=== PATIENT | female | born 1990 | race American Indian/Alaskan Native ===

== ENCOUNTER 2017-09-15 23:19 | Emergency (ER) | payer SELFPAY ==
[2017-09-16 01:45] LABS: Basophils % (Auto) 0.2 % (0.0-1.8); Eosinophils # (Auto) 0.1 K/mm3 (0.0-0.4); Eosinophils % (Auto) 1.3 % (0.0-4.3); Hematocrit 40.3 % (30.3-42.9); Hemoglobin 13.5 gm/dl (10.1-14.3); Lymphocytes # (Auto) 1.9 K/mm3 (1.2-5.4); Lymphocytes % (Auto) 24.4 % (13.4-35.0); Mean Corpuscular HGB Conc 34 % (30-34); Mean Corpuscular Hemoglobin 30 pg (28-32); Mean Corpuscular Volume 90 fl (79-97); Monocytes # (Auto) 0.6 K/mm3 (0.0-0.8); Monocytes % (Auto) 7.1 % (0.0-7.3); Platelet Count 183 K/mm3 (140-440); Red Blood Count 4.47 M/mm3 (3.65-5.03); Red Cell Distribution Width 13.9 % (13.2-15.2)
[2017-09-16 02:00] LABS: Alanine Aminotransferase 7 units/L (7-56); Albumin 4.4 g/dL (3.9-5); BUN/Creatinine Ratio 10; Blood Urea Nitrogen 6 mg/dL (7-17); Calcium 9.1 mg/dL (8.4-10.2); Hemolysis Index 5
[2017-09-16 02:04] LABS: Bilirubin,Urine NEG (Negative); Blood,Urine NEG (Negative); Color,Urine Yellow (Yellow); Mucus,Urine 3+ /HPF; Nitrite,Urine NEG (Negative)
[2017-09-16] MEDS ORDERED: ZOFRAN ODT PO ONE (11:19)
[2017-09-16] MEDS ORDERED: TYLENOL PO ONE (11:19)
--- NOTE | 2017-09-16 11:32 | Emergency Department Report ---
HPI - General Chief Complaint: Abdominal Pain Time Seen by Provider: 09/16/17 10:52 - HPI HPI: 27-year-old female presents to ED complaining of lower pelvic cramping and nausea for the past one week. she states lmp as 08/04/17. She denies fevers/ chills/vomiting/chest pains or shortness of breath or any other problems ED Past Medical Hx - Past Medical History Previous Medical History?: No - Surgical History Past Surgical History?: No - Social History Smoking Status: Never Smoker Substance Use Type: None - Medications Home Medications: Home Medications Medication Instructions Recorded Confirmed Last Taken Type traMADol [Ultram 50 MG tab] 50 mg PO Q6HR PRN #15 tablet 02/04/16 Unknown Rx Cephalexin [Keflex] 500 mg PO QID #20 cap 06/11/16 Unknown Rx Diphenhydramine HCl [Benadryl 25 mg PO Q6H PRN #20 tablet 06/11/16 Unknown Rx Allergy TAB] Ibuprofen [Motrin 600 MG tab] 600 mg PO Q8H PRN #30 tablet 06/11/16 Unknown Rx Acetaminophen [Tylenol Extra 500 mg PO Q6H #30 tablet 09/16/17 Unknown Rx Strength] Doxylamine Succinate/Vit B6 2 each PO QHS #30 tablet. 09/16/17 Unknown Rx [Mika Davidson 10-10 mg Tablet] 21/Iron Fu/Folic Acid 1 each PO DAILY #40 tablet 09/16/17 Unknown Rx [ Complete Caplet] ED Review of Systems ROS: Stated complaint: ABD/BACK PAIN Other details as noted in HPI Constitutional: denies: chills, fever Eyes: denies: eye pain, eye discharge, vision change ENT: denies: ear pain, throat pain, congestion Respiratory: denies: cough, shortness of breath, wheezing Cardiovascular: denies: chest pain, palpitations Endocrine: no symptoms reported Gastrointestinal: nausea. denies: abdominal pain, vomiting, diarrhea, constipation Genitourinary: denies: urgency, dysuria, discharge Musculoskeletal: denies: back pain, joint swelling, arthralgia Skin: denies: rash, lesions, pruritus Neurological: denies: headache, weakness, paresthesias Psychiatric: denies: anxiety, depression Hematological/Lymphatic: denies: easy bleeding, easy bruising Physical Exam - Physical Exam Vital Signs: Vital Signs 09/16/17 00:24 Temperature 98.4 F Pulse Rate 68 Respiratory 18 Rate Blood Pressure 134/98 O2 Sat by Pulse 100 Oximetry Physical Exam: GENERAL: Alert and oriented x3, no apparent distress, Normal Gait, atraumatic. HEAD: Head is normocephalic and a-traumatic. EYES: Extra ocular muscles are intact. Pupils are equal, round, and reactive to light and accommodation. LUNGS: Symetrical with respiration, No wheezing, no rales or crackles, CTAB. HEART: S1, S2 present, regular rate and rhythm without murmur, no rubs, no gallops. Non tender to palpation ABDOMEN: No organomegaly was noted,Positive bowel sounds, soft, and non- distended. . Nontender to palpation on all Quadrants, NO CVA tenderness. EXTREMITIES/MUSCULOSKELETAL: No cyanosis, clubbing, rash, lesions or edema. Full ROM bilaterally. UE/LE Pulses 2+ bilaterally. LE and UE 5+ strength bilaterally, straight leg raise negative bilaterally NEUROLOGIC: The patient is cooperative with no focal neurologic deficits. SKIN: Warm and dry, No lesions, No ulceration or induration present. ED Course Vital Signs 09/16/17 00:24 Temperature 98.4 F Pulse Rate 68 Respiratory 18 Rate Blood Pressure 134/98 O2 Sat by Pulse 100 Oximetry ED Medical Decision Making - Lab Data Result diagrams: 09/16/17 00:50 09/16/17 00:50 - Medical Decision Making 27-year-old female presents with signs and symptoms of ED course: Patient received Tylenol, Zofran ED. CBC, CMP, urinalysis and tests ordered. preg test positive, all other labs within normal limits. Quant ordered. Quantitative pending I discussed his findings with the patient. I discussed the patient to follow up with [facility] as referrals are given. Vital signs are normal. Patient is in no acute distress. I discussed the patient to take medication as needed for nausea as well as increase her fluid intake Patient states she understands instructions and will follow. I discussed with the patient is any worsening symptoms or new symptoms arise to return to ED. Critical care attestation.: If time is entered above; I have spent that time in minutes in the direct care of this critically ill patient, excluding procedure time. ED Disposition Clinical Impression: test positive, Nausea Qualifiers: Weeks of gestation: less than 8 weeks Qualified Code(s): Z3A.01 - Less than 8 weeks gestation of Disposition: DC- TO HOME OR SELFCARE Is pt being admited?: No Does the pt Need Aspirin: No Condition: Stable Instructions: Abdominal Pain (ED), Morning Sickness (ED), (ED) Additional Instructions: Make sure to follow up with the obgyn as discussed. Take all your medications as you've been prescribed. If you have any worsening symptoms or develop new symptoms please return to ED immediately. Increase and drink plenty of fluids. Prescriptions: Doxylamine Succinate/Vit B6 [Mika Davidson 10-10 mg Tablet] 2 each PO QHS #30 tablet. Acetaminophen [Tylenol Extra Strength] 500 mg PO Q6H #30 tablet 21/Iron Fu/Folic Acid [ Complete Caplet] 1 each PO DAILY #40 tablet Referrals: ELVIA GOMEZ MD [Primary Care Provider] - 3-5 Days MADIHA CRONIN MD [Referring] - 3-5 Days SABINE CRONIN MD [Referring] - 3-5 Days ASHANTI RENE MD [Referring] - 3-5 Days LAINA HERRERA MD [Staff Physician] - 3-5 Days ZENOBIA HERRERA MD [Referring] - 3-5 Days Forms: Work/School Release Form(ED) Time of Disposition: 12:31
[2017-09-16 12:48] VITALS: BP 144/87
== END 2017-09-16 12:47 | disposition home or self-care (01) ==
LOC: ED 23:19
DX: Z32.01 Encounter for pregnancy test, result positive (principal); Z3A.01 Less than 8 weeks gestation of pregnancy; R11.0 Nausea; R10.2 Pelvic and perineal pain
CPT/HCPCS: 36415; 80053; 81001; 84702; 84703; 85025; 99283; Q0162

== ENCOUNTER 2018-05-20 14:55 | Inpatient (IN) | payer MEDICAID ==
[2018-05-20 15:56] LABS: Bacteria,Urine 1+ /HPF (Negative); Bilirubin,Urine NEG (Negative); Blood,Urine LG (Negative); Color,Urine Yellow (Yellow); Mucus,Urine FEW /HPF; Protein,Urine <15 mg/dL mg/dL (Negative); Urobilinogen,Urine < 2.0 mg/dL (<2.0)
[2018-05-20] MEDS ORDERED: APRESOLINE IV ONE ×2 (16:11→17:17)
--- NOTE | 2018-05-20 16:14 | Emergency Department Report ---
HPI - General Chief Complaint: High BP Time Seen by Provider: 05/20/18 16:03 - HPI HPI: 28-year-old female presents to the emergency department with complaint of elevated blood pressure and a frontal headache and the patient is about 3 weeks from a vaginal delivery. 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 Prior to this she has no history of any hypertension or any other pre-existing medical conditions. She denies any vision change, slurred speech, chest pain or shortness of breath. She went to a pharmacy and the blood pressure was almost systolic 200. She does not smoke tobacco but occasionally will smoke marijuana. ED Past Medical Hx - Past Medical History Previous Medical History?: No Hx Hypertension: No Hx Congestive Heart Failure: No Hx Diabetes: No Hx Deep Vein Thrombosis: No Hx Renal Disease: No Hx Sickle Cell Disease: No Hx Seizures: No Hx Asthma: No Hx COPD: No Hx HIV: No - Surgical History Past Surgical History?: No - Social History Smoking Status: Never Smoker Substance Use Type: Alcohol, Marijuana - Medications Home Medications: Home Medications Medication Instructions Recorded Confirmed Last Taken Type traMADol [Ultram 50 MG tab] 50 mg PO Q6HR PRN #15 tablet 02/04/16 05/20/18 Unknown Rx Diphenhydramine HCl [Benadryl 25 mg PO Q6H PRN #20 tablet 06/11/16 05/20/18 Unknown Rx Allergy TAB] Ibuprofen [Motrin 600 MG tab] 600 mg PO Q8H PRN #30 tablet 06/11/16 05/20/1804/09 06:00 Rx cephALEXin [Keflex] 500 mg PO QID #20 cap 06/11/16 05/20/18 Unknown Rx Acetaminophen [Tylenol Extra 500 mg PO Q6H #30 tablet 09/16/17 05/20/18 Unknown Rx Strength] Doxylamine Succinate/Vit B6 2 each PO QHS #30 tablet. 09/16/17 05/20/18 Unknown Rx [Mika Davidson 10-10 mg Tablet] 21/Iron Fu/Folic Acid 1 each PO DAILY #40 tablet 09/16/17 05/20/18 Unknown Rx [ Complete Caplet] Lidocain2.5%/Prilocai2.5% [Emla] 5 gm TP PRN #1 tube 04/30/18 05/20/18 Unknown Rx Docusate Sodium [Colace] 100 mg PO BID PRN #60 capsule 05/01/18 05/20/18 Unknown Rx Ferrous Sulfate [Feosol 325 MG tab] 325 mg PO BID #60 tablet 05/01/18 05/20/18 Unknown Rx Ibuprofen [Motrin 800 MG tab] 800 mg PO TID PRN #30 tablet 05/01/18 05/20/18 Unknown Rx ED Review of Systems ROS: Stated complaint: HIGH BP Other details as noted in HPI Comment: All other systems reviewed and negative Constitutional: denies: chills, fever Eyes: denies: eye pain, eye discharge, vision change ENT: denies: ear pain, throat pain Respiratory: denies: cough, shortness of breath, wheezing Cardiovascular: denies: chest pain, palpitations Gastrointestinal: denies: abdominal pain, nausea, diarrhea Genitourinary: denies: urgency, dysuria, discharge Musculoskeletal: back pain. denies: joint swelling Skin: denies: rash, lesions Neurological: headache. denies: numbness Physical Exam - Physical Exam Vital Signs: Vital Signs 05/20/18 05/20/18 05/20/18 15:17 15:52 15:58 Temperature 98.8 F 98.5 F Pulse Rate 64 67 Respiratory 16 17 17 Rate Blood Pressure 187/110 Blood Pressure 180/105 [Left] O2 Sat by Pulse 100 100 100 Oximetry Physical Exam: GENERAL: The patient is well-developed well-nourished. HENT: Normocephalic. Atraumatic. Patient has moist mucous membranes. EYES: Extraocular motions are intact. Pupils equal reactive to light bilaterally. No nystagmus. NECK: Supple. Trachea is midline. CHEST/LUNGS: Clear to auscultation. There is no respiratory distress noted. HEART/CARDIOVASCULAR: Regular. There is no tachycardia. There is no murmur. ABDOMEN: Abdomen is soft, nontender. Patient has normal bowel sounds. There is no abdominal distention. SKIN: Skin is warm and dry. NEURO: The patient is awake, alert, and oriented. The patient is cooperative. The patient has no focal neurologic deficits. The patient has normal speech. Cranial nerves II through XII grossly intact. MUSCULOSKELETAL: There is no tenderness or deformity. There is no limitation range of motion. There is no evidence of acute injury. ED Course Vital Signs 05/20/18 05/20/18 05/20/18 15:17 15:52 15:58 Temperature 98.8 F 98.5 F Pulse Rate 64 67 Respiratory 16 17 17 Rate Blood Pressure 187/110 Blood Pressure 180/105 [Left] O2 Sat by Pulse 100 100 100 Oximetry ED Medical Decision Making - Lab Data Result diagrams: 05/20/18 16:21 05/20/18 16:21 - Radiology Data Radiology results: report reviewed CT of the head does not show any acute intracranial process including no ischemia, shift, mass, bleeding or skull fracture. - Medical Decision Making This patient came in with a complaint of a headache and elevated blood pressure. She is 3 weeks status post vaginal delivery done by Dr. Rey. On examination she does not have any focal, motor or sensory deficits in her cranial nerves are intact. CT of the head did not show any bleed, shift, mass, ischemia or any other acute process. The patient was given 2 different doses of hydralazine and a Percocet for her headache. It did show improvement in her blood pressure but it still remains elevated. I spoke to the [facility] service who is admitting her for hypertension, magnesium and further evaluation. - Differential Diagnosis preeclampsia, hypertension, essential hypertension, tension head Critical Care Time: No Critical care attestation.: If time is entered above; I have spent that time in minutes in the direct care of this critically ill patient, excluding procedure time. ED Disposition Clinical Impression: hypertension Headache Qualifiers: Headache type: unspecified Headache chronicity pattern: unspecified pattern Intractability: not intractable Qualified Code(s): R51 - Headache Disposition: OP ADMIT IP TO THIS HOSP Is pt being admited?: Yes Condition: Fair Time of Disposition: 23:23
[2018-05-20 16:33] LABS: Basophils % (Auto) 0.4 % (0.0-1.8); Eosinophils # (Auto) 0.2 K/mm3 (0.0-0.4); Eosinophils % (Auto) 4.2 % (0.0-4.3); Hematocrit 32.1 % (30.3-42.9); Hemoglobin 10.7 gm/dl (10.1-14.3); Lymphocytes # (Auto) 1.6 K/mm3 (1.2-5.4); Lymphocytes % (Auto) 36.6 % (13.4-35.0); Mean Corpuscular HGB Conc 33 % (30-34); Mean Corpuscular Hemoglobin 28 pg (28-32); Mean Corpuscular Volume 82 fl (79-97); Monocytes # (Auto) 0.4 K/mm3 (0.0-0.8); Monocytes % (Auto) 8.5 % (0.0-7.3); Platelet Count 189 K/mm3 (140-440); Red Blood Count 3.89 M/mm3 (3.65-5.03)
[2018-05-20 16:49] LABS: Alanine Aminotransferase 15 units/L (7-56); Albumin 3.8 g/dL (3.9-5); BUN/Creatinine Ratio 15; Blood Urea Nitrogen 9 mg/dL (7-17); Calcium 8.5 mg/dL (8.4-10.2); Hemolysis Index 11
[2018-05-20] MEDS ORDERED: PERCOCET 5/325 PO ONE (17:17)
--- NOTE | 2018-05-20 17:34 | Cat Scan Report ---
FINAL REPORT EXAM: CT HEAD/BRAIN WO CON HISTORY: headache, hypertension TECHNIQUE: CT examination of the head without IV contrast PRIORS: None. FINDINGS: Slight mucosal thickening maxillary sinuses. Moderate mucosal thickening ethmoid sinuses. Slight left and moderate right sphenoid sinus mucosal thickening. Clear frontal sinuses. Clear mastoid air cells and middle ear cavities. No acute air-fluid level visualized in the included air-filled sinuses. Bone windows demonstrate no acute fracture. The brain is without mass, mass effect, hemorrhage, or acute infarct. There is no extra-axial intracranial bleed, brain bleed, or midline shift. The ventricles and sulci are age-appropriate. IMPRESSION: No acute CVA, intracranial bleed, or brain mass Multifocal paranasal sinus disease without visible acute fluid level.
[2018-05-20] MEDS ORDERED: MAGNESIUM SULFATE 4GM/100ML 4 GM/100 ML BAG IV ONE (18:28)
[2018-05-20] MEDS ORDERED: ZOFRAN IV ONE (18:30)
[2018-05-20] MEDS ORDERED: ZOFRAN ONE (18:30)
[2018-05-20] MEDS ORDERED: MAGNESIUM SULFATE 40GM/1000ML 40 GM/1,000 ML BAG IV SCH ×2 (19:00→22:00)
--- NOTE | 2018-05-20 20:53 | History and Physical Report ---
History of Present Illness Date of examination: 05/20/18 Date of admission: 05/20/18 18:28 Chief complaint: high blood pressure History of present illness: From ED note: - General Chief Complaint: High BP - HPI HPI: 28-year-old female presents to the emergency department with complaint of elevated blood pressure and a frontal headache and the patient is about 3 weeks from a vaginal delivery. Her WIPER BLENDER is through [facility] and she called them to let them know of the elevated blood pressure and her headache and she was told by the emergency department. Prior to this she has no history of any hypertension or any other pre-existing medical conditions. She denies any vision change, slurred speech, chest pain or shortness of breath. She went to a pharmacy and the blood pressure was almost systolic 200. She does not smoke tobacco but occasionally will smoke marijuana. ED Past Medical Hx - Past Medical History Previous Medical History?: No Hx Hypertension: No Hx Congestive Heart Failure: No Hx Diabetes: No Hx Deep Vein Thrombosis: No Hx Renal Disease: No Hx Sickle Cell Disease: No Hx Seizures: No Hx Asthma: No Hx COPD: No Hx HIV: No - Surgical History Past Surgical History?: No - Social History Smoking Status: Never Smoker Substance Use Type: Alcohol, Marijuana Past History Past Medical History: no pertinent history Past Surgical History: no surgical history Medications and Allergies Allergies Allergy/AdvReac Type Severity Reaction Status Date / Time No Known Allergies Allergy Verified 05/20/18 15:20 Home Medications Medication Instructions Recorded Confirmed Last Taken Type traMADol [Ultram 50 MG tab] 50 mg PO Q6HR PRN #15 tablet 02/04/16 05/20/18 Unknown Rx Diphenhydramine HCl [Benadryl 25 mg PO Q6H PRN #20 tablet 06/11/16 05/20/18 Unknown Rx Allergy TAB] Ibuprofen [Motrin 600 MG tab] 600 mg PO Q8H PRN #30 tablet 06/11/16 05/20/1804/09 06:00 Rx cephALEXin [Keflex] 500 mg PO QID #20 cap 06/11/16 05/20/18 Unknown Rx Acetaminophen [Tylenol Extra 500 mg PO Q6H #30 tablet 09/16/17 05/20/18 Unknown Rx Strength] Doxylamine Succinate/Vit B6 2 each PO QHS #30 tablet. 09/16/17 05/20/18 Unknown Rx [Mika Davidson 10-10 mg Tablet] 21/Iron Fu/Folic Acid 1 each PO DAILY #40 tablet 09/16/17 05/20/18 Unknown Rx [ Complete Caplet] Lidocain2.5%/Prilocai2.5% [Emla] 5 gm TP PRN #1 tube 04/30/18 05/20/18 Unknown Rx Docusate Sodium [Colace] 100 mg PO BID PRN #60 capsule 05/01/18 05/20/18 Unknown Rx Ferrous Sulfate [Feosol 325 MG tab] 325 mg PO BID #60 tablet 05/01/18 05/20/18 Unknown Rx Ibuprofen [Motrin 800 MG tab] 800 mg PO TID PRN #30 tablet 05/01/18 05/20/18 Unknown Rx Active Meds: Active Medications Lactated Ringer's (Lactated Ringers) 1,000 mls @ 125 mls/hr IV DIRECT CEM Labetalol HCl (Normodyne) 300 mg PO BID CEM Review of Systems All systems: negative Neurological: headaches - Vital Signs Vital signs: Vital Signs Temp Pulse Resp BP Pulse Ox 98.8 F 64 16 187/110 100 05/20/18 15:17 05/20/18 15:17 05/20/18 15:17 05/20/18 15:17 05/20/18 15:17 Temp Pulse Resp BP Pulse Ox 98.5 F 86 18 152/108 100 05/20/18 15:52 05/20/18 18:00 05/20/18 18:00 05/20/18 18:00 05/20/18 18:00 - Physical Exam Cardiovascular: Regular rate Lungs: Positive: Clear to auscultation Abdomen: Positive: normal appearance, soft Extremities: Positive: normal Results Result Diagrams: 05/20/18 16:21 05/20/18 16:21 Abnormal lab results 05/20/18 05/20/18 Range/Units 16:21 16:21 WBC 4.4 L (4.5-11.0) K/mm3 Lymph % (Auto) 36.6 H (13.4-35.0) % [place] % (Auto) 8.5 H (0.0-7.3) % Chloride 107.8 H (98-107) mmol/L Creatinine 0.6 L (0.7-1.2) mg/dL Albumin 3.8 L (3.9-5) g/dL All other labs normal. Assessment and Plan 28 y/o had a vaginal 04/30/18 readmitted for elevated blood pressures. 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 She reported a MYERS since delivery. She was advised to go to the ED where her blood pressure continued to be elevated even after being treated with 2 doses hydralizine IV. Of note; Patient had elevated b/p's at time of her last admission 04/29/18 with normal pre-e labs and 2 slightly elevated b/p's noted at ED visit in August 2017. Admission orders in EMR for hypertension to [facility]. Dr. Randall has been consulted on admission. - Patient Problems (1) hypertension Current Visit: Yes Status: Acute
[2018-05-20] MEDS ORDERED: NORMODYNE PO SCH (22:00)
[2018-05-20] MEDS: NORMODYNE PO SCH (22:00)
[2018-05-20] MEDS: LACTATED RINGERS 1,000 ML IV SCH (22:18)
--- NOTE | 2018-05-20 22:26 | Event Note ---
Date: 05/20/18 Pt seen and evaluated. States she was having a headache and had bp checked and [facility] and it was 190s/117s. No blurry vision at this time. I d/w plan of care. She is s/p labetalol 300mg po. Will closely monitor at this time and con' t the magnesium. Pt states with this was the only time her bp was elevated. All questions were addressed and answered and pt agrees with plan of care. RN at bedside at time that plan of care was d/w pt.
[2018-05-21] MEDS ORDERED: TYLENOL PO PRN (01:14)
[2018-05-21] MEDS: MOTRIN PO PRN ×2 (01:41→10:13)
[2018-05-21] MEDS: LACTATED RINGERS 1,000 ML IV SCH ×2 (06:35→21:44)
[2018-05-21] MEDS: NORMODYNE PO SCH ×2 (10:08→21:55)
--- NOTE | 2018-05-21 10:53 | Progress Note ---
Assessment and Plan - Patient Problems (1) Headache Current Visit: Yes Status: Acute Qualifiers: Headache type: unspecified Headache chronicity pattern: unspecified pattern Intractability: not intractable Qualified Code(s): R51 - Headache (2) hypertension Current Visit: Yes Status: Acute Plan to address problem: D/c MgSO at 7p, continue Labetalol 300mg Adjust pain meds Possible d/c home tomorrow Patient agrees with plan of care Subjective Date of service: 05/21/18 Principal diagnosis: PPD#21 , with PP preeclampisa, MYERS Interval history: Complains of MYERS Objective - Constitutional Vitals: Vital Signs - 12hr 05/21/18 05/21/18 05/21/18 00:00 01:41 02:30 Temperature 98.4 F 98.0 F Pulse Rate 71 63 Respiratory 20 20 20 Rate Blood Pressure 124/74 126/63 [Left] 05/21/18 05/21/18 04:25 10:13 Temperature 98.4 F Pulse Rate 87 Respiratory 20 20 Rate Blood Pressure 120/67 [Left] General appearance: Present: no acute distress - Neck Neck: supple - Respiratory Respiratory effort: normal Respiratory: negative: CTA - Breasts Breasts: normal - Cardiovascular Rhythm: regular Extremities: no ischemia, No edema - Gastrointestinal General gastrointestinal: Present: soft, non-tender, non-distended, normal bowel sounds - Psychiatric Psychiatric: appropriate mood/affect, intact judgment & insight - Labs CBC & Chem 7: 05/20/18 16:21 05/20/18 16:21 Labs: Abnormal lab results 05/20/18 05/20/18 05/21/18 Range/Units 16:21 16:21 00:57 WBC 4.4 L (4.5-11.0) K/mm3 Lymph % (Auto) 36.6 H (13.4-35.0) % [place] % (Auto) 8.5 H (0.0-7.3) % Chloride 107.8 H (98-107) mmol/L Creatinine 0.6 L (0.7-1.2) mg/dL Magnesium 3.80 H (1.7-2.3) mg/dL Albumin 3.8 L (3.9-5) g/dL 05/21/18 Range/Units 05:58 WBC (4.5-11.0) K/mm3 Lymph % (Auto) (13.4-35.0) % [place] % (Auto) (0.0-7.3) % Chloride (98-107) mmol/L Creatinine (0.7-1.2) mg/dL Magnesium 3.80 H (1.7-2.3) mg/dL Albumin (3.9-5) g/dL
[2018-05-21] MEDS: TYLENOL PO SCH ×2 (12:37→19:01)
[2018-05-21] MEDS: MOTRIN PO SCH ×2 (15:42→21:56)
[2018-05-22] MEDS: TYLENOL PO SCH ×2 (00:33→06:15)
[2018-05-22] MEDS: MOTRIN PO SCH ×2 (04:16→09:28)
[2018-05-22] MEDS: NORMODYNE PO SCH ×2 (09:22→20:04)
[2018-05-22] MEDS: CLARITIN-D 24HR PO SCH (11:23)
--- NOTE | 2018-05-22 11:42 | Progress Note ---
Assessment and Plan Patient desires d/c home. Will observe thruout today and ? d/c this pm if MYERS improves with claritin and BP's remain stable, she has an appointment scheduled for tomorrow the office - Patient Problems (1) Headache Current Visit: Yes Status: Acute Qualifiers: Headache type: unspecified Headache chronicity pattern: chronic headache Intractability: intractable Qualified Code(s): R51 - Headache (2) Paranasal sinus disease Current Visit: Yes Status: Chronic Plan to address problem: Will try Claritin D and will watch BP's closely (3) hypertension Current Visit: Yes Status: Acute Plan to address problem: Continue labetalol Subjective Date of service: 05/22/18 Principal diagnosis: PPD#22 , with PP preeclampisa, MYERS Interval history: States her MYERS is better now but comes back after the medicine wears off. States she has had MYERS's like this prior to her pregnancies. She cannot remember what medication she would take to relieve the MYERS's because it was so long ago. Objective - Exam Narrative Exam: Patient was sleeping, awakened easily. MYERS better now - Constitutional Vitals: Vital Signs - 12hr 05/22/18 05/22/18 05/22/18 00:15 04:15 07:41 Temperature 98.3 F 97.9 F 97.6 F Pulse Rate 76 61 68 Respiratory 18 18 18 Rate Blood Pressure 147/99 165/98 148/76 [Left] O2 Sat by Pulse 96 99 Oximetry 05/22/18 09:28 Temperature Pulse Rate Respiratory 20 Rate Blood Pressure [Left] O2 Sat by Pulse Oximetry General appearance: Present: no acute distress - Respiratory Respiratory effort: normal - Breasts Breasts: deferred Extremities: no ischemia, No edema - Gastrointestinal General gastrointestinal: Present: soft, non-tender - Genitourinary Female genitourinary: deferred - Psychiatric Psychiatric: appropriate mood/affect, intact judgment & insight - Labs CBC & Chem 7: 05/20/18 16:21 05/20/18 16:21 Labs: Abnormal lab results 05/21/18 05/21/18 Range/Units 11:34 20:42 Magnesium 3.80 H 4.40 H (1.7-2.3) mg/dL - Imaging and cardiology CT Scan - head: report reviewed
--- NOTE | 2018-05-22 19:35 | Event Note ---
Date: 05/22/18 BP of 160/90 noted after chart review to allow patient home, eventually repeat bp performed and reported as 180/100, orders given.
[2018-05-22] MEDS ORDERED: APRESOLINE IV ONE ×2 (20:00)
[2018-05-22] MEDS ORDERED: TORADOL IV PRN (20:35)
--- NOTE | 2018-05-23 06:31 | Discharge Summary ---
Providers - Providers Date of Admission: 05/20/18 18:28 Date of discharge: 05/23/18 ( preE) Attending physician: CONTRERAS BUTTERFIELD Primary care physician: SPINNER FRAME Hospitalization Reason for admission: elevated BP PP Condition: Good Disposition: DC-01 TO HOME OR SELFCARE - Discharge Diagnoses (1) hypertension Status: Acute Comment: RTO 1 week BP check RX labetalol 300mg TID provided @ d/c Core Measure Documentation - Palliative Care Palliative Care/ Comfort Measures: Not Applicable - Core Measures Any of the following diagnoses?: none - VTE Discharge Requirements Deep Vein Thrombosis/Pulmonary Embolism Present on Admission: No Has pt received <5 days of overlap therapy or INR<2.0: No Anticoagulant overlap therapy prescribed at discharge: No Contraindication No Overlap Therapy order at DC: Not Indicated - Acute PR Discharge Requirements Aspirin at discharge: No Reason for no aspirin on DC: Medical contraindication MAKI/ARB for LVSD if EF <40%: Not Applicable Reason for no MAKI/ARB: Medical contraindication Beta ave at discharge: No Reason for no beta ave on DC: Medical contraindication Statin for LDL = or >100 mg/dl on DC: Not Applicable Reason for no statin on DC: Medical contraindication - Heart Failure Discharge Requirements MAKI/ARB for LVSD if EF <40%: Not Applicable Reason for no MAKI/ARB: Medical contraindication Beta ave at discharge: No Reason for no beta ave on DC: Medical contraindication - Stroke Discharge Requirements Statin for LDL = or >70 mg/dl on DC: Not Applicable Reason for no statin on DC: Not Indicated Anticoag for atrial fib/atrial flutter: Not Applicable Reason for no anticoag for AF/F on DC: Not Indicated Antithrombotic for ischemic stroke: No Reason for no antithrombotic on DC: Not Indicated Exam - Physical Exam Narrative exam: Pt resting denies any MYERS, blurred vision, chest pain. Pt has NB sleeping in her bed. BP 120-110/70 over night. P: d/c today after consulting with RTO 1 week. RX for Labetalol 300mg TID given to pt @ discharge. - Constitutional Vitals: Temp Pulse Resp BP Pulse Ox 98.6 F 79 18 116/70 99 05/23/18 05:51 05/23/18 05:51 05/23/18 05:51 05/23/18 05:51 05/22/18 04:15 General appearance: Present: no acute distress, well-nourished - EENT Eyes: Present: PERRL ENT: hearing intact, clear oral mucosa - Neck Neck: Present: supple, normal ROM - Respiratory Respiratory effort: normal Respiratory: bilateral: CTA - Cardiovascular Heart Sounds: Present: S1 & S2. Absent: rub, click - Extremities Extremities: pulses symmetrical, No edema Peripheral Pulses: within normal limits - Abdominal General gastrointestinal: Present: soft, non-tender, non-distended, normal bowel sounds Female genitourinary: Present: normal - Rectal Rectal Exam: deferred - Integumentary Integumentary: Present: clear, warm, dry - Musculoskeletal Musculoskeletal: gait normal, strength equal bilaterally - Psychiatric Psychiatric: appropriate mood/affect, intact judgment & insight - Neurologic Neurologic: CNII-XII intact, moves all extremities Plan Activity: advance as tolerated Weight Bearing Status: Weight Bear as Tolerated Diet: low salt Special Instructions: no heavy lifting Follow up with: PRIMARY CARE,MD [Primary Care Provider] - 7 Days CONCHA CHAPARRO CNM [Advanced Practice Nurse] - 7 Days (Please call [phone] to schedule your blood pressure check in 1 week. Take medication as prescribed. Call with headache not relieved with Tylenol, blurred vision, chest pain. Call with any concerns.)
[2018-05-23] MEDS: NORMODYNE PO SCH ×2 (08:11→14:03)
[2018-05-23] MEDS: CLARITIN-D 24HR PO SCH (12:33)
--- NOTE | 2018-05-23 15:55 | Event Note ---
Date: 05/23/18 (appt for BP check) Appointment made for BP check on Wednesday @ 1330 in [place] office. Spoke with pt's nurse Yumiko. She has conveyed the appt to the pt.
[2018-05-23 17:10] VITALS: BP 153/92
== END 2018-05-23 17:40 | disposition home or self-care (01) | DRG 776 ==
LOC: ED 14:55 → OB 18:28
PROVIDERS: ADMIT Obstetrics & Gynecology; ATTEND Obstetrics & Gynecology
DX: O16.5 Unspecified maternal hypertension, complicating the puerperium (principal); Z79.899 Other long term (current) drug therapy; Z79.2 Long term (current) use of antibiotics; F12.90 Cannabis use, unspecified, uncomplicated
CPT/HCPCS: 36415; 70450; 80053; 81001; 83735; 85025; 96374; 96375; 96376; J0360; J2405; J3475; J7120

== ENCOUNTER 2019-05-22 11:54 | Inpatient (IN) | payer MEDICAID ==
[2019-05-22] MEDS ORDERED: LACTATED RINGERS 1,000 ML IV SCH (13:00)
[2019-05-22 13:31] LABS: Hematocrit 32.5 % (30.3-42.9); Hemoglobin 10.7 gm/dl (10.1-14.3); Mean Corpuscular HGB Conc 33 % (30-34); Mean Corpuscular Volume 85 fl (79-97); Platelet Count 225 K/mm3 (140-440); Red Blood Count 3.85 M/mm3 (3.65-5.03); Red Cell Distribution Width 14.6 % (13.2-15.2)
[2019-05-22 13:37] LABS: Alanine Aminotransferase 6 units/L (7-56); Uric Acid 5.5 mg/dL (3.5-7.6)
[2019-05-22 13:45] LABS: Color,Urine Yellow (Yellow)
[2019-05-22 13:46] LABS: Bacteria,Urine 2+ /HPF (Negative); Bilirubin,Urine NEG (Negative); Blood,Urine NEG (Negative); Mucus,Urine 3+ /HPF
--- NOTE | 2019-05-22 14:34 | Ultrasound Report ---
ULTRASOUND BIOPHYSICAL PROFILE ULTRASOUND OB LIMITED INDICATION: preeclampsia TECHNIQUE: Transabdominal ultrasound imaging. COMPARISON: None FINDINGS: breathing movement = 2 Gross body movement = 2 tone = 2 Qualitative amniotic fluid volume = 2 Total biophysical score = 8/8 Amniotic fluid index is 10.7 cm. Presentation is cephalic. heart rate is 137 beats per minute. IMPRESSION: biophysical profile equals 8/8. Signer Name: Brian Fu Jr, MD Signed: 05/22/2019 2:30 PM Workstation Name: [id number]
[2019-05-22] MEDS ORDERED: MAGNESIUM SULFATE 4 GM/100 ML BAG IV ONE (15:00)
[2019-05-22] MEDS ORDERED: ONDANSETRON 4 MG/2 ML INJ ONE (15:51)
[2019-05-22] MEDS: ONDANSETRON 4 MG/2 ML INJ IV PRN ×2 (15:55→20:42)
[2019-05-22] MEDS: MAGNESIUM SULFATE 40GM/1000ML 40 GM/1,000 ML BAG IV SCH (16:15)
[2019-05-22] MEDS ORDERED: hydrALAZINE 20 MG/1 ML INJ IV PRN (17:16)
[2019-05-22] MEDS ORDERED: MINERAL OIL 30 ML ORAL LIQD PO PRN (17:21)
[2019-05-22] MEDS ORDERED: TERBUTALINE 1 MG/1 ML INJ SUB-Q PRN (17:21)
[2019-05-22] MEDS ORDERED: LIDOCAINE (2%) 20 MG/1 ML VIAL 20 ML MDV INFILTRATI ONE (17:21)
[2019-05-22] MEDS ORDERED: ePHEDrine SULFATE 50 MG/1 ML INJ IV PRN (17:21)
[2019-05-22] MEDS ORDERED: hydrALAZINE 20 MG/1 ML INJ IV ONE (17:30)
[2019-05-22] MEDS ORDERED: fentaNYL 100 MCG/2 ML INJ IV PRN (17:32)
[2019-05-22] MEDS ORDERED: DINOPROSTONE 10 MG VAG SUPP VG ONE (17:32)
--- NOTE | 2019-05-22 17:39 | History and Physical Report ---
History of Present Illness Date of examination: 05/22/19 Date of admission: 05/22/19 14:45 Chief complaint: SIUP at 36 weeks an 1 day. History of present illness: Patient is a 29 year old , LMP 09/11/18, EDC 06/18/19 at 36 weeks and 1 day gestation who was sent from the office for elevated BP of 178/110. She denies any headache, visual changes or RUQ pain. She reports good movement. tracing is CAT1. She was given labetolol IV. Past History Past Medical History: other (anemia, D&C.) [employer] History: herpes Family/Genetic History: none Social history: no significant social history - Obstetrical History Expected Date of Delivery: 06/18/19 Actual Gestation: 36 Week(s) 1 Day(s) : 5 Para: 3 Number of Living Children: 3 Medications and Allergies Allergies Allergy/AdvReac Type Severity Reaction Status Date / Time No Known Allergies Allergy Verified 05/20/18 15:20 Home Medications Medication Instructions Recorded Confirmed Last Taken Type traMADol [Ultram 50 MG tab] 50 mg PO Q6HR PRN #15 tablet 02/04/16 05/20/18 Unknown Rx Diphenhydramine HCl [Benadryl 25 mg PO Q6H PRN #20 tablet 06/11/16 05/20/18 Unknown Rx Allergy TAB] Ibuprofen [Motrin 600 MG tab] 600 mg PO Q8H PRN #30 tablet 06/11/16 05/20/18 04/30/18 06:00 Rx cephALEXin [Keflex] 500 mg PO QID #20 cap 06/11/16 05/20/18 Unknown Rx Acetaminophen [Tylenol Extra 500 mg PO Q6H #30 tablet 09/16/17 05/20/18 Unknown Rx Strength] Doxylamine Succinate/Vit B6 2 each PO QHS #30 tablet. 09/16/17 05/20/18 Unknown Rx [Mika Davidson 10-10 mg Tablet] 21/Iron Fu/Folic Acid 1 each PO DAILY #40 tablet 09/16/17 05/20/18 Unknown Rx [ Complete Caplet] Lidocain2.5%/Prilocai2.5% [Emla] 5 gm TP PRN #1 tube 04/30/18 05/20/18 Unknown Rx Docusate Sodium [Colace] 100 mg PO BID PRN #60 capsule 05/01/18 05/20/18 Unknown Rx Ferrous Sulfate [Feosol 325 MG tab] 325 mg PO BID #60 tablet 05/01/18 05/20/18 Unknown Rx Ibuprofen [Motrin 800 MG tab] 800 mg PO TID PRN #30 tablet 05/01/18 05/20/18 Unknown Rx Labetalol [Labetalol 100mg TAB] 300 mg PO Q8HR #90 tablet 05/23/18 Unknown Rx Active Meds: Active Medications Hydralazine HCl (Apresoline) 5 mg IV Q30MIN PRN PRN Reason: Hypertension Hydralazine HCl (Apresoline) 10 mg IV ONCE ONE Stop: 05/22/19 17:31 Magnesium Sulfate (Magnesium Sulfate 40gm/1000ml) 40 gm in 1,000 mls @ 50 mls/hr IV DIRECT CEM Last Admin: 05/22/19 16:15 Dose: 2 gm/hr, 50 mls/hr Documented by: Lactated Ringer's (Lactated Ringers) 1,000 mls @ 125 mls/hr IV DIRECT CEM Ondansetron HCl (Zofran) 4 mg IV Q4H PRN PRN Reason: Nausea And Vomiting Last Admin: 05/22/19 15:55 Dose: 4 mg Documented by: - Vital Signs Vital signs: Vital Signs Pulse BP 55 L 189/113 05/22/19 12:18 05/22/19 12:18 Temp Pulse Resp BP Pulse Ox 98.1 F 73 14 178/113 100 05/22/19 16:03 05/22/19 17:32 05/22/19 16:03 05/22/19 17:31 05/22/19 17:32 - Physical Exam Cardiovascular: Normal S1, Normal S2 Lungs: Positive: Clear to auscultation Vulva: both: normal Adnexa: both: normal Deep Tendon Reflex Grade: Normal +2 - Obstetrical FHR: category 1 Uterine Contraction Monitor Mode: External Uterine Contraction Pattern: Absent Results Result Diagrams: 05/22/19 Unknown 05/22/19 Unknown Abnormal lab results 05/22/19 05/22/19 Range/Units Unknown Unknown Creatinine 0.5 L (0.7-1.2) mg/dL ALT 6 L (7-56) units/L Lactate Dehydrogenase 197 H (91-180) units/L Urine WBC (Auto) 12.0 H (0.0-6.0) /HPF All other labs normal. Assessment and Plan - Patient Problems (1) 36 weeks gestation of Current Visit: Yes Status: Acute (2) Pre-eclampsia Current Visit: Yes Status: Acute Plan to address problem: Admit to the labor floor. IV hydration. Toxemia labs were normal. Magnesiums was started, running at 2gm/hr. Monitor Mg levels, DTRs, urine output. Monitor BP. Labetolol for BP control. Induce labor with cervidil.
--- NOTE | 2019-05-22 17:59 | Event Note ---
Date: 05/22/19 Assessed pt. Discussed IOL, pt verbalized understanding. Cervical exam: / 3. Cervidil 10 mg vaginal x 12 hrs as tolerated.
[2019-05-22] MEDS ORDERED: ACETAMINOPHEN 325 MG TAB PO PRN (20:16)
[2019-05-23] MEDS: ONDANSETRON 4 MG/2 ML INJ IV PRN ×2 (00:06→03:20)
[2019-05-23] MEDS: BUTORPHANOL 2 MG/1 ML INJ IV PRN ×2 (00:06→03:19)
[2019-05-23] MEDS: LACTATED RINGERS 1,000 ML IV SCH ×2 (03:20→17:25)
[2019-05-23] MEDS: OXYTOCIN 20 UNIT/1000ML DRIP 20 UNITS/1,000 ML BAG IV SCH ×2 (04:30→07:01)
[2019-05-23] MEDS ORDERED: ONDANSETRON 4 MG/2 ML INJ IV PRN (04:42)
[2019-05-23] MEDS ORDERED: oxyCODONE /ACETAMINOPHEN 5-325MG TAB PO PRN (04:42)
[2019-05-23] MEDS ORDERED: PROMETHAZINE 25 MG TAB PO PRN (04:42)
[2019-05-23] MEDS ORDERED: WITCH HAZEL/ GLYCERIN PAD TP PRN (04:42)
[2019-05-23] MEDS ORDERED: LANOLIN/ZINC/DIMETHICONE (LANSINOH) 7 GM TP PRN (04:42)
[2019-05-23] MEDS ORDERED: diphenhydrAMINE 25 MG CAP PO PRN (04:42)
[2019-05-23] MEDS ORDERED: MAGNESIUM HYDROXIDE (MOM) ORAL LIQD UDC PO PRN (04:42)
--- NOTE | 2019-05-23 04:51 | Procedure Note ---
OB Delivery Note - Delivery Date of Delivery: 05/23/19 (0419) Surgeon: CHARLEE CRONIN (LESLY) Estimated blood loss: other (50cc) - Vaginal Delivery presentation: vertex Delivery position: OA Intrapartum events: meconium (term) Delivery induction: cervidil Delivery monitor: external FHT, external uterine Route of delivery: Delivery placenta: spontaneous (0431) Delivery cord: 3 umbilical vessels Episiotomy: none Delivery laceration: none Anesthesia: none Delivery comments: Called to room to find a small, viable, crying female infant previously del ivered, in warmer, being evaluated by NICU team. Placenta spontaneously delivered at 0431, schwartz, sent to pathology (secondary to SGA; Magniesium). Fundus firm, U-1, hemostasis maintained. Perineum intact. placed skin to skin with mom briefly before being transported to NICU. Mother safe and stable. - Infant A at 1 minute: 8 at 5 minutes: 9 Gender: Female (Weight: 1682 gms (3 lbs 11 ozs) length unknown at this time)
[2019-05-23] MEDS: IBUPROFEN 600 MG TAB PO SCH ×2 (06:21→08:44)
[2019-05-23] MEDS: MAGNESIUM SULFATE 40GM/1000ML 40 GM/1,000 ML BAG IV SCH (09:52)
[2019-05-23 17:28] LABS: Hematocrit 35.5 % (30.3-42.9); Hemoglobin 11.6 gm/dl (10.1-14.3)
[2019-05-23] MEDS: oxyCODONE /ACETAMINOPHEN 5-325MG TAB PO PRN (20:06)
--- NOTE | 2019-05-24 10:46 | Progress Note ---
Assessment and Plan - Patient Problems (1) 36 weeks gestation of Current Visit: Yes Status: Acute (2) Pre-eclampsia Current Visit: Yes Status: Acute Plan to address problem: S/P magnesium sulfate. Monitor BP. Labetolol for BP control. Add norvasc. (3) (normal spontaneous vaginal delivery) Current Visit: Yes Status: Acute Plan to address problem: Continue routine care. Subjective - Subjective Date of service: 05/24/19 Principal diagnosis: S/P , pre-eclampsia, S/P magnesium sulfate. Interval history: Patient is a 29 year old , who was admitted at 36 weeks and 1 day gestation for pre-eclampsia. She delivered yesterday AM. Magnesium sulfate was continued for another 24 hours after the delivery and discontinued at 4 AM today. She denies any headache, dizziness, visual changes or RUQ pain. her BP was stable all night but became elevated again this AM in the 150/90's. Objective - Vital Signs Latest vital signs: Vital Signs Temp Pulse Resp BP BP Pulse Ox 05/24/19 09:12 98.7 F 74 18 151/89 98 05/24/19 09:00 74 151/89 05/24/19 06:00 98.7 F 75 18 144/94 99 05/24/19 04:17 78 100 05/24/19 04:12 68 134/83 100 05/24/19 04:07 66 100 05/24/19 04:02 71 100 05/24/19 03:57 69 100 05/24/19 03:52 68 100 05/24/19 03:47 76 100 05/24/19 03:42 65 117/68 100 05/24/19 03:37 67 100 05/24/19 03:32 67 100 05/24/19 03:27 66 100 05/24/19 03:22 65 100 05/24/19 03:17 90 100 05/24/19 03:12 75 143/74 100 05/24/19 03:07 74 99 05/24/19 03:02 76 99 05/24/19 03:00 97.6 F 05/24/19 02:57 75 99 05/24/19 02:52 74 99 05/24/19 02:47 73 99 05/24/19 02:42 71 114/61 99 05/24/19 02:37 71 99 10/02/19 02:32 71 99 05/24/19 02:27 70 99 05/24/19 02:22 69 99 05/24/19 02:17 69 100 05/24/19 02:12 65 120/70 100 05/24/19 02:07 68 100 05/24/19 02:02 68 100 05/24/19 01:57 67 100 05/24/19 01:52 64 100 05/24/19 01:47 64 100 05/24/19 01:42 75 128/65 05/24/19 01:40 70 100 05/24/19 01:35 66 100 05/24/19 01:30 70 100 05/24/19 01:25 67 100 05/24/19 01:20 72 100 05/24/19 01:15 69 100 05/24/19 01:12 71 117/67 05/24/19 01:10 73 100 05/24/19 01:05 69 100 05/24/19 01:00 69 100 05/24/19 00:55 64 100 05/24/19 00:50 73 100 05/24/19 00:45 67 100 05/24/19 00:42 69 128/75 05/24/19 00:40 68 100 05/24/19 00:35 69 100 05/24/19 00:30 70 100 05/24/19 00:25 75 100 05/24/19 00:20 68 100 05/24/19 00:15 68 100 05/24/19 00:12 75 117/60 05/24/19 00:10 70 100 05/24/19 00:05 68 100 05/24/19 00:00 71 100 05/23/19 23:55 68 100 05/23/19 23:50 82 100 05/23/19 23:45 70 100 05/23/19 23:42 72 122/71 05/23/19 23:40 69 100 05/23/19 23:35 69 100 05/23/19 23:30 72 100 05/23/19 23:25 70 100 05/23/19 23:20 72 100 05/23/19 23:15 70 100 05/23/19 23:12 74 120/72 05/23/19 23:10 75 100 05/23/19 23:05 71 100 05/23/19 23:00 69 100 05/23/19 22:55 72 100 05/23/19 22:50 70 100 05/23/19 22:45 71 100 05/23/19 22:42 66 146/82 05/23/19 22:40 90 100 05/23/19 22:35 78 100 05/23/19 22:30 67 100 05/23/19 22:25 72 100 05/23/19 22:20 82 100 05/23/19 22:15 67 100 05/23/19 22:12 70 139/77 05/23/19 22:10 81 100 05/23/19 22:05 91 H 100 05/23/19 22:00 74 100 05/23/19 21:55 68 100 05/23/19 21:50 69 100 05/23/19 21:45 88 100 05/23/19 21:40 75 100 05/23/19 21:37 74 156/99 05/23/19 21:35 80 100 05/23/19 21:30 78 100 05/23/19 21:25 76 99 05/23/19 21:20 72 99 05/23/19 21:18 75 156/91 05/23/19 21:15 83 100 05/23/19 21:10 75 100 05/23/19 21:06 15 05/23/19 21:05 79 100 05/23/19 21:00 77 100 05/23/19 20:57 81 134/89 05/23/19 20:55 79 100 05/23/19 20:50 77 99 05/23/19 20:45 81 100 05/23/19 20:40 79 98 05/23/19 20:38 73 160/98 93 05/23/19 20:35 84 99 05/23/19 20:30 83 100 05/23/19 20:25 76 100 05/23/19 20:20 77 100 05/23/19 20:17 76 165/93 05/23/19 20:15 76 100 05/23/19 20:10 90 100 05/23/19 20:06 16 05/23/19 20:05 86 100 05/23/19 20:04 98.0 F 85 16 129/91 05/23/19 20:00 83 100 05/23/19 19:55 85 100 05/23/19 19:50 89 100 05/23/19 19:45 74 100 05/23/19 19:40 80 100 05/23/19 19:35 78 100 05/23/19 19:28 90 100 05/23/19 19:23 84 100 05/23/19 19:18 84 100 05/23/19 19:13 80 100 05/23/19 19:08 80 100 05/23/19 19:07 95 H 129/91 05/23/19 19:03 80 100 05/23/19 19:01 78 L 05/23/19 18:58 90 100 05/23/19 18:53 87 100 05/23/19 18:48 82 100 05/23/19 18:43 87 100 05/23/19 18:38 86 100 05/23/19 18:33 87 100 05/23/19 18:28 84 100 05/23/19 18:23 87 100 05/23/19 18:18 92 H 100 05/23/19 18:13 79 100 05/23/19 18:08 69 159/96 100 05/23/19 18:03 91 H 100 05/23/19 17:58 91 H 100 05/23/19 17:53 90 100 05/23/19 17:48 91 H 100 05/23/19 17:43 90 100 05/23/19 17:38 97 H 100 05/23/19 17:33 89 100 05/23/19 17:28 90 100 05/23/19 17:27 99 H 155/100 05/23/19 17:23 100 05/23/19 16:44 75 100 05/23/19 16:39 74 100 05/23/19 16:34 79 100 05/23/19 16:29 74 100 05/23/19 16:24 75 100 05/23/19 16:19 77 100 05/23/19 16:14 75 100 05/23/19 16:09 74 100 05/23/19 16:07 97.4 F L 76 149/89 149/89 05/23/19 16:04 73 100 05/23/19 15:59 76 100 05/23/19 15:54 76 100 05/23/19 15:49 74 100 05/23/19 15:44 75 100 05/23/19 15:39 78 100 05/23/19 15:34 74 100 05/23/19 15:29 72 100 05/23/19 15:24 74 100 05/23/19 15:19 77 100 05/23/19 15:14 83 100 05/23/19 15:09 90 100 05/23/19 15:07 85 137/94 137/94 05/23/19 15:04 91 H 99 05/23/19 14:59 77 100 05/23/19 14:54 85 100 05/23/19 14:49 79 100 05/23/19 14:44 78 100 05/23/19 14:39 77 100 05/23/19 14:34 80 100 05/23/19 14:29 79 100 05/23/19 14:24 79 100 05/23/19 14:19 82 0 L 05/23/19 14:14 84 100 05/23/19 14:12 88 94 05/23/19 14:08 84 94 05/23/19 14:07 78 142/83 142/83 05/23/19 14:06 90 94 05/23/19 14:03 85 99 05/23/19 13:59 70 62 L 05/23/19 13:58 83 100 05/23/19 13:53 81 100 05/23/19 13:48 84 100 05/23/19 13:43 90 100 05/23/19 13:38 80 100 05/23/19 13:31 76 100 05/23/19 13:26 78 100 05/23/19 13:21 72 100 05/23/19 13:16 74 100 05/23/19 13:11 83 99 05/23/19 13:07 74 136/84 136/84 05/23/19 13:06 73 100 05/23/19 13:01 71 100 05/23/19 12:56 75 100 05/23/19 12:51 70 100 05/23/19 12:46 77 100 05/23/19 12:41 71 100 05/23/19 12:36 72 99 05/23/19 12:32 97.7 F 70 125/83 125/83 05/23/19 12:31 79 100 05/23/19 12:26 73 100 05/23/19 12:21 71 100 05/23/19 12:16 76 100 05/23/19 12:11 73 100 05/23/19 12:06 83 100 05/23/19 12:01 86 100 05/23/19 11:56 82 100 05/23/19 11:48 84 100 05/23/19 11:43 88 100 05/23/19 11:38 86 100 05/23/19 11:33 80 100 05/23/19 11:28 80 100 05/23/19 11:23 81 100 05/23/19 11:18 80 100 05/23/19 11:13 82 100 05/23/19 11:08 81 100 05/23/19 11:07 81 113/62 113/62 05/23/19 11:03 82 100 05/23/19 10:58 80 100 05/23/19 10:53 83 100 05/23/19 10:48 84 100 05/23/19 10:43 85 100 Intake and Output 05/23/19 05/24/19 05/24/19 23:59 07:59 15:59 Intake Total 7483.152 9257.583 Output Total 2500 1500 Balance -1270.833 104.583 Intake: IV 4901.985 2958.583 Lactated Ringers 1,000 ml 229.167 681.25 @ 125 mls/hr IV DIRECT CEM Rx#:[id number] MAGNESIUM SULFATE 40GM/ 923.333 1000ML 40 gm In 1,000 ml @ 2 GM/HR 50 mls/hr IV DIRECT CEM Rx#:[id number] PITOCin/NS 20 UNIT/1000ML 1000 DRIP 20 units In 1,000 ml @ 125 mls/hr IV DIRECT CME Rx#:[id number] Output: Urine 2500 1500 Indwelling 700 Indwelling Catheter 2500 700 Void 100 Other: Total, Output Amount 1300 800 - Exam Cardiovascular: Present: Normal S1, Normal S2 Lungs: Present: Clear to auscultation Vulva: both: normal Deep Tendon Reflex Grade: Normal +2 - Labs Labs: Abnormal lab results 05/23/19 05/24/19 Range/Units 20:34 03:18 Magnesium 6.80 H 7.20 H (1.7-2.3) mg/dL
[2019-05-24] MEDS: oxyCODONE /ACETAMINOPHEN 5-325MG TAB PO PRN (11:09)
[2019-05-24] MEDS: amLODIPine 10 MG TAB PO SCH (11:51)
[2019-05-24 21:48] LABS: Hemoglobin 9.3 gm/dl (10.1-14.3)
[2019-05-25] MEDS: oxyCODONE /ACETAMINOPHEN 5-325MG TAB PO PRN ×2 (08:42→17:45)
[2019-05-25] MEDS: amLODIPine 10 MG TAB PO SCH (09:40)
--- NOTE | 2019-05-25 10:59 | Progress Note ---
Assessment and Plan (1) Pre-eclampsia Current Visit: Yes Status: Acute Plan to address problem: S/P magnesium sulfate. VSS 120-140s/60-70s. Continue to monitor BP. Continue Labetolol and Norvasc. Pt c/o headache. Just took 2 Percocet 40 minutes ago. Encouraged inc H20 and rest. Advised that it may be from her B/P normalizing. Will continue to monitor. Pt did not have epidural (2) (normal spontaneous vaginal delivery) Current Visit: Yes Status: Acute Plan to address problem: Continue routine care. Anticipate discharge home in 24-48 hrs Subjective - Subjective Date of service: 05/25/19 Principal diagnosis: S/P , pre-eclampsia, S/P magnesium sulfate. Interval history: See H&P and delivery note Patient reports: appetite normal, voiding normally, pain well controlled, flatus, ambulating normally, no bowel movement : in NICU Objective - Vital Signs Latest vital signs: Vital Signs Temp Pulse Resp BP BP Pulse Ox 05/25/19 08:43 120/74 05/25/19 08:27 98.0 F 65 18 120/74 99 05/25/19 04:44 98.2 F 67 18 128/68 05/25/19 00:37 98.5 F 78 18 145/84 97 05/24/19 21:19 78 138/80 05/24/19 20:52 98.6 F 78 18 138/80 100 05/24/19 16:23 70 142/80 05/24/19 16:21 98.2 F 70 18 142/80 100 05/24/19 11:56 98.8 F 68 18 138/91 98 05/24/19 11:51 68 138/91 Intake and Output 05/24/19 05/25/19 05/25/19 23:59 07:59 15:59 Intake Total 480 600 Balance 480 600 Intake: Intake, Free Water 480 600 Other: # Voids Void 2 2 - Exam Breasts: Present: normal (Pumping with desire to breastfeed) Cardiovascular: Present: Regular rate, Normal S1, Normal S2, No murmurs Lungs: Present: Clear to auscultation, Normal air movement Abdomen: Present: normal appearance, soft. Absent: distention, tenderness Vulva: both: normal Uterus: Present: firm, fundal height at umbilicus Extremities: Present: normal Deep Tendon Reflex Grade: Normal +2 - Labs Labs: Abnormal lab results 05/24/19 Range/Units 21:24 Hgb 9.3 L (10.1-14.3) gm/dl Hct 28.0 L D (30.3-42.9) %
[2019-05-26] MEDS: oxyCODONE /ACETAMINOPHEN 5-325MG TAB PO PRN ×4 (01:02→23:57)
[2019-05-26] MEDS: amLODIPine 10 MG TAB PO SCH (09:00)
--- NOTE | 2019-05-26 11:03 | Progress Note ---
Assessment and Plan (1) Pre-eclampsia Current Visit: Yes Status: Acute Plan to address problem: S/P magnesium sulfate. VSS 130-140s/70-80s. Continue to monitor BP. Continue Labetalol and Norvasc. Denies headache. Visual disturbances Co-managed with MD for antihypertensive therapy (2) (normal spontaneous vaginal delivery) Current Visit: Yes Status: Acute Plan to address problem: Continue routine care. Infant remains in NICU Anticipate discharge home in 24-48 hrs Subjective - Subjective Date of service: 05/26/19 Principal diagnosis: S/P , pre-eclampsia, S/P magnesium sulfate. Interval history: See H&P and delivery note Patient reports: appetite normal, voiding normally, pain well controlled, flatus, ambulating normally, no bowel movement : in NICU, other (Mother pumping breasts with intentions to breastfeed) Objective - Vital Signs Latest vital signs: Vital Signs Temp Pulse Resp BP Pulse Ox 05/26/19 05:32 98.6 F 64 18 146/86 99 05/26/19 02:02 18 05/26/19 01:41 98.4 F 69 16 135/80 100 05/26/19 01:02 18 05/25/19 21:57 60 145/83 05/25/19 19:38 98.0 F 59 L 18 145/83 99 05/25/19 17:00 98.2 F 70 18 149/85 98 05/25/19 14:30 140/84 Intake and Output 05/25/19 05/26/19 05/26/19 23:59 07:59 15:59 Intake Total 240 Balance 240 Intake: Intake, Free Water 240 Other: # Voids Void 2 2 - Exam Breasts: Present: Cardiovascular: Present: Regular rate, Normal S1, Normal S2, No murmurs Lungs: Present: Clear to auscultation, Normal air movement Abdomen: Present: normal appearance, soft, normal bowel sounds. Absent: distention, tenderness Vulva: both: normal Uterus: Present: firm, fundal height below umbilicus (-1) Extremities: Present: normal
--- NOTE | 2019-05-26 20:13 | Progress Note ---
Subjective - Subjective Date of service: 05/26/19 Principal diagnosis: S/P , pre-eclampsia, S/P magnesium sulfate. Interval history: patient seen and chart reviewed patietn declines examination and declines to partake in history this evening Chart reviewed, BP controlled adequately on antihypertensives stable for D/C home in Am if they remain stable overnight Zabrina Schafer Objective - Vital Signs Latest vital signs: Vital Signs Temp Pulse Resp BP BP Pulse Ox 05/26/19 18:18 98.5 F 71 18 123/74 94 05/26/19 09:00 140/86 05/26/19 08:40 140/86 05/26/19 05:32 98.6 F 64 18 146/86 99 05/26/19 02:02 18 05/26/19 01:41 98.4 F 69 16 135/80 100 05/26/19 01:02 18 05/25/19 21:57 60 145/83 Intake and Output 05/26/19 05/26/19 05/26/19 07:59 15:59 23:59 Intake Total 240 Balance 240 Intake: Intake, Free Water 240 Other: # Voids Void 2
[2019-05-26] MEDS ORDERED: IBUPROFEN 800 MG TAB PO PRN (21:35)
[2019-05-27] MEDS: oxyCODONE /ACETAMINOPHEN 5-325MG TAB PO PRN ×3 (05:53→18:38)
--- NOTE | 2019-05-27 10:59 | Progress Note ---
Assessment and Plan A: day 4 S/P vaginal delivery; severe preeclampsia; on Norvasc and Labetalol for BP control. Anemia secondary to and blood loss. P: Continue Norvasc and Labetalol. Monitor BPs. Repeat labs. Continue iron supplementation. Subjective - Subjective Date of service: 05/27/19 Principal diagnosis: day 4 S/P vaginal delivery; severe preeclampsia prior to Interval history: day 4 S/P vaginal . BPs slightly increased this AM. Patient denies headache, visual disturbance, cough, shortness of breath, chest pain, leg pain, abdominal pain, heavy vaginal bleeding, or nausea/vomiting. Patient is voiding without difficulty, ambulating well, tolerating a regular diet. On Norvasc and Labetalol for BP. Will consult with Dr. Arias re: this patient and disposition when labs are resulted. Patient reports: appetite normal, voiding normally, pain well controlled, flatus, ambulating normally, no dizzy ambulation, no bowel movement, no nauseated [place]: doing well Objective - Vital Signs Latest vital signs: Vital Signs Temp Pulse Resp BP Pulse Ox 05/27/19 09:12 135/94 05/27/19 08:44 98.0 F 68 19 130/94 97 05/27/19 05:39 98.2 F 72 20 145/97 96 05/27/19 01:56 98.3 F 75 20 138/90 97 05/26/19 21:44 70 137/93 05/26/19 18:18 98.5 F 71 18 123/74 94 Intake and Output 05/26/19 05/27/19 05/27/19 23:59 07:59 15:59 Other: # Voids Void 1 # Bowel Movements 1 - Exam Cardiovascular: Present: Regular rate, Normal S1, Normal S2, No murmurs Lungs: Absent: Clear to auscultation Abdomen: Present: normal appearance, soft, normal bowel sounds. Absent: distention, tenderness, guarding, rigidity Uterus: Present: normal, firm, fundal height below umbilicus. Absent: bogginess, tenderness Extremities: Present: normal. Absent: tenderness, edema
[2019-05-27] MEDS: amLODIPine 10 MG TAB PO SCH (11:10)
[2019-05-27 15:15] LABS: Bilirubin,Urine NEG (Negative); Blood,Urine SM (Negative); Color,Urine Yellow (Yellow); Mucus,Urine FEW /HPF; Protein,Urine <15 mg/dL mg/dL (Negative); Urobilinogen,Urine < 2.0 mg/dL (<2.0)
[2019-05-27 15:20] LABS: Alanine Aminotransferase 15 units/L (7-56); Albumin 3.4 g/dL (3.9-5); BUN/Creatinine Ratio 10; Blood Urea Nitrogen 6 mg/dL (7-17); Calcium 8.9 mg/dL (8.4-10.2); Hemolysis Index 6
[2019-05-28] MEDS: oxyCODONE /ACETAMINOPHEN 5-325MG TAB PO PRN ×2 (01:02→13:20)
[2019-05-28] MEDS: amLODIPine 10 MG TAB PO SCH (10:53)
[2019-05-28 11:45] VITALS: BP 117/91
--- NOTE | 2019-05-28 11:56 | Progress Note ---
Assessment and Plan A: /postop day 5 S/P spontaneous vaginal delivery. Severe preeclampsia prior to ; BPs now well controlled on meds. Anemia secondary to blood loss. P: Discharge patient home today. Advised patient to continue Labetalol and Norvasc at home; Rx Labetalol 300 mg, #60, 1 po BID and Rx Norvasc 10 mg, #30, 1 po daily called to [facility] [address] in [place], [place]. Advised patient to continue taking vitamin and iron supplements at home (patient states she has these at home already). Discussed with patient in detail discharge instructions and warning signs. Advised patient to avoid intercourse, lifting and heavy housework. Advised patient to follow up at [facility] in 1 week for BP check. Advised patient to return promptly if any problems. Patient voiced understanding of all instructions. Subjective - Subjective Date of service: 05/28/19 Principal diagnosis: day 5 S/P vaginal delivery; severe preeclampsia prior to Interval history: day 5 S/P vaginal . BPs controlled now on Labetalol and Norvasc. Patient desires discharge home. Voiding without difficulty, ambulating well, tolerating a regular diet, reports scant lochia. Patient denies headache, visual disturbance, nausea or vomiting, abdominal or epigastric pain, chest pain, shortness of breath, cough, leg pain, or heavy vaginal bleeding. Patient reports: appetite normal, voiding normally, pain well controlled, flatus, bowel movement, ambulating normally, no dizzy ambulation, no nauseated [place]: doing well, in NICU Objective - Vital Signs Latest vital signs: Vital Signs Temp Pulse Resp BP BP Pulse Ox 05/28/19 08:35 98.7 F 77 20 117/91 05/28/19 05:15 98.0 F 79 20 142/86 91 05/28/19 01:00 90 138/87 05/28/19 00:12 98.1 F 77 20 135/97 99 05/27/19 20:30 83 20 138/94 98 05/27/19 16:17 97.9 F 75 18 133/81 96 05/27/19 14:51 136/82 05/27/19 14:00 136/82 Intake and Output 05/27/19 05/28/19 05/28/19 23:59 07:59 15:59 Intake Total 480 480 120 Balance 480 480 120 Intake: Oral 480 480 120 Other: Total, Intake Amount 240 240 120 # Voids Void 1 1 2 - Exam Cardiovascular: Present: Regular rate, Normal S1, Normal S2, No murmurs Lungs: Present: Clear to auscultation Abdomen: Present: normal appearance, soft, normal bowel sounds. Absent: distention, tenderness, guarding, rigidity Uterus: Present: normal, firm, fundal height below umbilicus. Absent: bogginess, tenderness Extremities: Present: normal. Absent: tenderness, edema - Labs Labs: Abnormal lab results 05/27/19 Range/Units 14:44 Sodium 134 L (137-145) mmol/L Chloride 97.3 L (98-107) mmol/L Carbon Dioxide 21 L (22-30) mmol/L BUN 6 L (7-17) mg/dL Creatinine 0.6 L (0.7-1.2) mg/dL Glucose 111 H (65-100) mg/dL Albumin 3.4 L (3.9-5) g/dL
--- NOTE | 2019-05-28 12:02 | Discharge Summary ---
Providers - Providers Date of Admission: 05/22/19 14:45 Date of discharge: 05/28/19 Attending physician: PHONG GIVENS MD None Primary care physician: PHONG GIVENS MD Hospitalization Reason for admission: induction of labor Delivery: Episiotomy: none Other procedures: none complications: none Discharge diagnosis: delivery baby: female Pertinent studies: Labs Hospital course: Stable hospital course Condition at discharge: Good Disposition: DC-01 TO HOME OR SELFCARE - Discharge Diagnoses (1) delivery Status: Acute (2) Anemia due to blood loss Status: Acute (3) Pre-eclampsia Status: Acute Plan - Provider Discharge Summary Activity: routine, no sex for 6 weeks, no heavy lifting 4 weeks, no strenuous exercise Diet: routine Instructions: routine Additional instructions: Continue your vitamins and iron supplements at home. Continue Labetalol and Norvasc at home (Rx have been called to [facility] on [address] in [place]). Call your doctor immediately for: * Fever > 100.5 * Heavy vaginal bleeding ( >1 pad per hour) * Severe persistent headache * Shortness of breath * Reddened, hot, painful area to leg or breast - Follow up plan Follow up: PHONG GIVENS MD [Primary Care Provider] - 7 Days
== END 2019-05-28 14:30 | disposition home or self-care (01) | DRG 775 ==
LOC: TRG 11:54 → LD 14:45 → TRG 14:45 → OB 05-24 05:51
PROVIDERS: ADMIT Obstetrics & Gynecology; ATTEND Obstetrics & Gynecology
PROC: 10E0XZZ Delivery of Products of Conception, External Approach (ICD-10-PCS; principal; 2019-05-23)
PROC: 3E0P7VZ Introduction of Hormone into Female Reproductive, Via Natural or Artificial Opening (ICD-10-PCS; 2019-05-23)
DX: O77.0 Labor and delivery complicated by meconium in amniotic fluid (principal); O60.14X0 Preterm labor third trimester with preterm delivery third trimester, not applicable or unspecified; O14.14 Severe pre-eclampsia complicating childbirth; Z79.899 Other long term (current) drug therapy; Z3A.36 36 weeks gestation of pregnancy; Z37.0 Single live birth; D62 Acute posthemorrhagic anemia
CPT/HCPCS: 36415; 59200; 76815; 76819; 80053; 81001; 82565; 83615; 83735; 84450; 84460; 84550; 85014; 85018; 85027; 85049; 86592; 86850; 86870; 86900; 86901; 87086; 88307; 93005; 93010; G0378; J0360; J0595; J2405; J2590; J3010; J3475; J7120; Q0169